=== PATIENT | female | born 1935 | race Caucasian/White ===

== ENCOUNTER 2017-05-30 21:16 | Emergency (ER) | payer BC, OTHER ==
[2017-05-30] MEDS ORDERED: SODIUM CHLORIDE 0.9% 500 ML INFUS.BAG IV ONE (21:27)
[2017-05-30 21:30] VITALS: BP 158/86; PULSE 97; TEMP 99; BMI 21.9
--- NOTE | 2017-05-30 21:35 | PDOC ---
History of Present Illness - General History Source: Patient Exam Limitations: No Limitations - History of Present Illness Initial Comments: 05/30/17 21:35 The patient is an 81 year old female with no pertinent past medical history who presents to the ED with complaints of lethargy, nausea, diarrhea, and cough for the past week. The patient states that on Thursday she went to urgent care for a sore throat and her rapid strep test came back negative. The patient was still prescribed amoxicillin and took two days worth of the prescription until she was called and told the culture came back negative. The patient states her sore throat has subsided but now complains of decreased appetite, nausea, and diarrhea, stating she had 6 watery stools today as well as multiple the past few days. She reports weight loss as well. The patient denies any fevers or chills. She denies any vomiting, melena, or hematochezia. She denies any CP or SOB. She denies any urinary symptoms. <Lanette Masterson - Last Filed: 05/30/17 22:08> <Soy Lew - Last Filed: 05/31/17 07:05> - General Chief Complaint: Respiratory Stated Complaint: COUGH & LETHARGY Time Seen by Provider: 05/30/17 21:24 Past History <Lanette Masterson - Last Filed: 05/30/17 22:08> <Soy Lew - Last Filed: 05/31/17 07:05> - Past Medical History Allergies/Adverse Reactions: Allergies Allergy/AdvReac Type Severity Reaction Status Date / Time No Known Allergies Allergy Verified 05/30/17 21:19 Home Medications: Ambulatory Orders Alendronate Na [Fosamax] 70 mg PO Q7D 05/30/17 Amlodipine Besylate [Norvasc -] 5 mg PO DAILY 05/30/17 Aspirin Coated [Ecotrin -] 81 mg PO DAILY 05/30/17 Atorvastatin Calcium [Lipitor] 10 mg PO DAILY 05/30/17 Juan Miguel/D3/Mag11/Zinc/Foundation Stage Teacher/Baljit/Bor [Caltrate 600+D Plus Tablet] 1 each PO DAILY 01/07 Multivit-Min/Iron/Folic/Lutein [Centrum Silver Women Tablet] 1 each PO DAILY 01/07 Review of Systems - Review of Systems Able to Perform ROS?: Yes Comments:: 05/30/17 21:35 GENERAL/CONSTITUTIONAL: Present: weakness No fever or chills. HEAD, EYES, EARS, NOSE AND THROAT: No change in vision. No ear pain or discharge. No sore throat. GASTROINTESTINAL: Present: nausea, diarrhea No vomiting or constipation. GENITOURINARY: No dysuria, frequency, or change in urination. CARDIOVASCULAR: No chest pain or shortness of breath. RESPIRATORY: Present: cough No wheezing, or hemoptysis. MUSCULOSKELETAL: No joint or muscle swelling or pain. No neck or back pain. SKIN: No rash NEUROLOGIC: No headache, vertigo, loss of consciousness, or change in strength/ sensation. ENDOCRINE: No increased thirst. No abnormal weight change. HEMATOLOGIC/LYMPHATIC: No anemia, easy bleeding, or history of blood clots. ALLERGIC/IMMUNOLOGIC: No hives or skin allergy. All Other Systems: Reviewed and Negative <Lanette Masterson - Last Filed: 05/30/17 22:08> *Physical Exam - Vital Signs Last Vital Signs Temp Pulse Resp BP Pulse Ox 99.0 F 97 H 18 158/86 98 05/30/17 21:18 05/30/17 21:18 05/30/17 21:18 05/30/17 21:18 05/30/17 21:18 - Physical Exam Comments: 05/30/17 21:38 GENERAL: Awake, alert, and fully oriented, in no acute distress HEAD: No signs of trauma EYES: PERRLA, EOMI, sclera anicteric, conjunctiva clear ENT: Auricles normal inspection, hearing grossly normal, nares patent, oropharynx clear without exudates. Moist mucosa NECK: Normal ROM, supple, no lymphadenopathy, JVD, or masses LUNGS: Breath sounds equal, clear to auscultation bilaterally. No wheezes, and no crackles HEART: Regular rate and rhythm, normal S1 and S2, no murmurs, rubs or gallops ABDOMEN: Soft, nontender, normoactive bowel sounds. No guarding, no rebound. No masses EXTREMITIES: Normal range of motion, no edema. No clubbing or cyanosis. No cords, erythema, or tenderness BACK: No midline spinal tenderness in cervical/thoracic/lumbar region NEUROLOGICAL: Normal speech, cranial nerves intact, negative pronator drift, 5/ 5 strength in all 4 extremities, normal sensation to light touch in all 4 extremities, normal cerebellar exam, normal gait, normal reflexes and tone SKIN: Warm, Dry, normal turgor, no rashes or lesions noted. <AlejaLanette - Last Filed: 05/30/17 22:08> Heart Score/ECG Review - ECG Intrepretation Comment:: 05/30/17 22:08 ECG obtained at 21:31 Normal sinus at 84 bpm Anteroseptal infarct, age undetermined <Lanette Masterson - Last Filed: 05/30/17 22:08> ED Treatment Course - LABORATORY CBC & Chemistry Diagram: 05/30/17 21:45 05/30/17 21:45 <clementLanette - Last Filed: 05/30/17 22:08> - LABORATORY CBC & Chemistry Diagram: 05/30/17 21:45 05/30/17 21:45 <Soy Lew - Last Filed: 05/31/17 07:05> Medical Decision Making - Medical Decision Making 05/31/17 07:03 CXR-MARTHA, as read by me, refered to radiology for definitive read mild dehydration no other acute issues identified sympotmatically improved after 1L NS stable for dc now. family understands to return to ED for persistence or worsening <Soy Lew - Last Filed: 05/31/17 07:05> *DC/Admit/Observation/Transfer - Attestations Scribe Attestion: 05/30/17 21:38 Documentation prepared by Lanette Masterson, acting as medical billing manager for Soy Lew MD. <Lanette Masetrson - Last Filed: 05/30/17 22:08> <Soy Lew - Last Filed: 05/31/17 07:05> Diagnosis at time of Disposition: Weakness - Discharge Dispostion Disposition: HOME Condition at time of disposition: Good - Referrals Referrals: Margie Hedrick MD [Primary Care Provider] - Call tomorrow - Patient Instructions Printed Discharge Instructions: DI for Fatigue - Post Discharge Activity
[2017-05-30 21:49] LABS: URINE APPEARANCE Clear; URINE BILIRUBIN 1+ (NEGATIVE); URINE GLUCOSE (UA) Negative (NEGATIVE); URINE KETONE Trace (NEGATIVE); URINE LEUK ESTERASE Negative (NEGATIVE); URINE NITRITE Negative (NEGATIVE); URINE UROBILINOGEN 0.2 (0.2-1.0)
[2017-05-30 21:52] LABS: URINE BLOOD Trace-intact (NEGATIVE); URINE COLOR YELLOW; URINE PROTEIN 2+ (NEGATIVE)
[2017-05-30 21:58] LABS: BASO % 0.5 % (0-2.0); EOS % 0.1 % (0-4.5); HEMATOCRIT 48.1 % (32.4-45.2); HEMOGLOBIN 16.6 GM/dl (10.7-15.3); LYMPH % 48.6 % (8-40); MCH 31.1 pg (25.7-33.7); MCHC 34.5 g/dl (32.0-36.0); MEAN CELL VOLUME 90.1 fl (80-96); MEAN PLT VOLUME 8.1 fl (7.5-11.1); MONO % 12.8 % (3.8-10.2); PLATELET COUNT 187 K/MM3 (134-434); RBC 5.34 M/mm3 (3.60-5.2); RDW 12.8 % (11.6-15.6)
[2017-05-30 22:13] LABS: ALBUMIN 4.1 g/dl (3.5-5.0); ALK PHOS 57 U/L (32-92); ANION GAP 8 (8-16); BLOOD UREA NITROGEN 15 mg/dl (7-18); CALCIUM 8.9 mg/dl (8.4-10.2); CHLORIDE 102 mmol/L (98-107); CO2 24 mmol/L (22-28); CREATININE 0.9 mg/dl (0.6-1.3); GLUCOSE,RANDOM 132 mg/dl (74-106); POTASSIUM 3.7 mmol/L (3.5-5.1); SGOT/AST 49 U/L (10-42); SGPT/ALT 27 U/L (10-40); SODIUM 134 mmol/L (136-145)
[2017-05-30 22:16] LABS: URINE CASTS COARSE GRANULAR 0-1 /hpf
[2017-05-30 22:21] LABS: BILIRUBIN,TOTAL 0.7 mg/dl (0.2-1.0)
--- NOTE | 2017-05-31 20:39 | EKG ---
Test Reason : Blood Pressure : / mmHG Vent. Rate : 084 BPM Atrial Rate : 084 BPM P-R Int : 220 ms QRS Dur : 088 ms QT Int : 356 ms P-R-T Axes : 050 075 066 degrees QTc Int : 420 ms SINUS RHYTHM WITH 1ST DEGREE A-V BLOCK ANTEROSEPTAL INFARCT , AGE UNDETERMINED ABNORMAL ECG NO PREVIOUS ECGS AVAILABLE Confirmed by HUBERT RAMIREZ MD ([id number]) on 05/31/2017 8:39:19 PM Referred By: SMOOTH Confirmed By:HUBERT RAMIREZ MD
== END 2017-05-30 23:16 | disposition home or self-care (01) ==
LOC: FER 21:16
PROC: 3E0337Z Introduction of Electrolytic and Water Balance Substance into Peripheral Vein, Percutaneous Approach (ICD-10-PCS; principal; 2017-05-30)
DX: R53.1 Weakness (principal)
CPT/HCPCS: 36415; 71046-TC-FY; 80053; 81003; 81015; 84443; 84484; 85025; 87086; 93005; 99284-25

== ENCOUNTER 2017-06-03 11:48 | Inpatient (IN) | payer OTHER ==
--- NOTE | 2017-06-03 12:51 | PDOC ---
*Physical Exam - Vital Signs Last Vital Signs Temp Pulse Resp BP Pulse Ox 97.4 F L 106 H 18 140/89 98 06/03/17 11:55 06/03/17 11:55 06/03/17 11:55 06/03/17 11:55 06/03/17 11:55 ED Treatment Course - LABORATORY CBC & Chemistry Diagram: 06/03/17 13:08 06/03/17 13:15 Medical Decision Making - Medical Decision Making 06/03/17 12:48 Ms Almeida is an 81 yo F who presents to the ER due to cough Pt was recently diagnosed with influenza Pt presents today via EMS due to cough initially seen in fast track, sent to the ER Pt seen by Midlevel Provider under my direct supervision Pt interviewed and examined Ancillary studies reviewed I agree with plan as outlined by Midlevel Provider *DC/Admit/Observation/Transfer Diagnosis at time of Disposition: Weakness, Nausea - Discharge Dispostion Disposition: HOME Condition at time of disposition: Improved - Referrals - Patient Instructions - Post Discharge Activity
[2017-06-03 13:27] LABS: BASO % 0.3 % (0-2.0); EOS % 0.2 % (0-4.5); HEMATOCRIT 44.5 % (32.4-45.2); HEMOGLOBIN 15.1 GM/dL (10.7-15.3); LYMPH % 35.3 % (8-40); MCH 31.3 pg (25.7-33.7); MCHC 33.8 g/dl (32.0-36.0); MEAN CELL VOLUME 92.3 fl (80-96); MEAN PLT VOLUME 8.2 fl (7.5-11.1); MONO % 9.7 % (3.8-10.2); NEUT % 54.5 % (42.8-82.8); PLATELET COUNT 156 K/MM3 (134-434); RBC 4.82 M/mm3 (3.60-5.2); RDW 13.4 % (11.6-15.6); WHITE BLOOD COUNT 6.5 K/mm3 (4.0-10.0)
[2017-06-03] MEDS ORDERED: SODIUM CHLORIDE 500 ML IV STA (13:51)
[2017-06-03] MEDS ORDERED: KETOROLAC TROMETHAMINE 30 MG/1 ML VIAL IVPUSH ONE (13:51)
[2017-06-03] MEDS ORDERED: ONDANSETRON 4 MG/2 ML VIAL IVPUSH ONE (13:51)
--- NOTE | 2017-06-03 13:59 | PDOC ---
History of Present Illness - General Chief Complaint: Cold Symptoms Stated Complaint: NAUSEA, COLD Time Seen by Provider: 06/03/17 12:18 History Source: Patient - History of Present Illness Timing/Duration: other Associated Symptoms: reports: cough, nausea/vomiting, weakness. denies: chest pain, diaphoresis, fever/chills, headaches, shortness of breath Past History - Past Medical History Allergies/Adverse Reactions: Allergies Allergy/AdvReac Type Severity Reaction Status Date / Time No Known Allergies Allergy Verified 06/03/17 11:53 Home Medications: Ambulatory Orders Alendronate Na [Fosamax] 70 mg PO Q7D 05/30/17 Amlodipine Besylate [Norvasc -] 5 mg PO DAILY 05/30/17 Aspirin Coated [Ecotrin -] 81 mg PO DAILY 05/30/17 Atorvastatin Calcium [Lipitor] 10 mg PO DAILY 05/30/17 Juan Miguel/D3/Mag11/Zinc/Clinical Lab Technologist/Baljit/Bor [Caltrate 600+D Plus Tablet] 1 each PO DAILY 01/07 Multivit-Min/Iron/Folic/Lutein [Centrum Silver Women Tablet] 1 each PO DAILY 01/07 Cancer: Yes (COLON) COPD: No HTN: Yes Hypercholesterolemia: Yes - Surgical History GI Surgery: Yes (COLON RESECTION 1977) - Immunization History Immunization Up to Date: Yes - Suicide/Smoking/Psychosocial Hx Smoking History: Never smoked Have you smoked in the past 12 months: No If you are a former smoker, when did you quit?: 1987 Information on smoking cessation initiated: No Hx Alcohol Use: No Drug/Substance Use Hx: No Substance Use Type: None Review of Systems - Review of Systems Constitutional: Yes: Weakness. No: Chills, Fever HEENTM: Yes: Throat Pain Respiratory: Yes: Cough. No: Shortness of Breath Cardiac (ROS): No: Chest Pain, Lightheadedness, Palpitations ABD/GI: Yes: Diarrhea, Nausea. No: Vomiting, Abdominal cramping : No: Dysuria *Physical Exam - Vital Signs Last Vital Signs Temp Pulse Resp BP Pulse Ox 97.4 F L 106 H 18 140/89 98 06/03/17 11:55 06/03/17 11:55 06/03/17 11:55 06/03/17 11:55 06/03/17 11:55 - Physical Exam General Appearance: Yes: Appropriately Dressed HEENT: positive: Normal Voice Neck: positive: Supple Respiratory/Chest: positive: Lungs Clear, Normal Breath Sounds. negative: Respiratory Distress Cardiovascular: positive: S1, S2, Tachycardia Gastrointestinal/Abdominal: positive: Soft. negative: Tender Musculoskeletal: negative: CVA Tenderness Integumentary: positive: Dry, Warm Neurologic: positive: Fully Oriented, Alert, Normal Mood/Affect ED Treatment Course - LABORATORY CBC & Chemistry Diagram: 06/03/17 13:08 06/03/17 13:15 - ADDITIONAL ORDERS Additional order review: Laboratory Results 06/03/17 13:08 WBC 6.5 RBC 4.82 Hgb 15.1 Hct 44.5 MCV 92.3 MCH 31.3 MCHC 33.8 RDW 13.4 Plt Count 156 MPV 8.2 Neutrophils % 54.5 Lymphocytes % 35.3 Monocytes % 9.7 Eosinophils % 0.2 Basophils % 0.3 06/03/17 13:08 RBC 4.82 MCV 92.3 MCHC 33.8 RDW 13.4 MPV 8.2 Neutrophils % 54.5 Lymphocytes % 35.3 Monocytes % 9.7 Eosinophils % 0.2 Basophils % 0.3 - RADIOLOGY Radiology Studies Ordered: Category Date Time Status CHEST X-RAY PORTABLE* [RAD] Stat Radiology 06/03/17 12:43 Completed Medical Decision Making - Medical Decision Making 06/03/17 13:53 81-year-old female, history of hypertension, dx w/ influenza ~2 weeks ago, resides at home alone, here with generalized weakness with severe nausea x approximately 10 days. Reports cough and diarrhea that has since resolved. No abdominal pain, shortness of breath, chest pain, fever or chills. Patient was seen in ED 4 days ago for similar symptoms, had negative labs/cxr and discharged home. Of note, ucx was contaminated, rpt sample recommended. Pt reports no dysuria. Prior to last ER visit, pt was seen at an urgent care center w/ sore throat, had negative rapid strep sent home on amoxicillin anyway. Has since stopped meds as was told throat culture was negative per patient. States she returns today because nausea is severe. Has not vomited per patient See exam Weakness w/ nausea Seen for same in ED 4 days ago and neg labs and dc home Appears mildly lethargic w/ HR of 106 Possibly dehydration, r/o cardiac, metabolic or infxn -IVF -zofran -labs -anticipate admission 06/03/17 14:00 Chest x-ray read as COPD. Labs and EKG unremarkable. Pending UA. Case discussed with Dr. Hedrick and patient admitted for hydration *DC/Admit/Observation/Transfer Diagnosis at time of Disposition: Weakness, Nausea - Discharge Dispostion Disposition: HOME Condition at time of disposition: Fair Admit: Yes - Referrals Referrals: Margie Hedrick MD [Primary Care Provider] - - Patient Instructions - Post Discharge Activity
[2017-06-03 14:00] LABS: ALBUMIN 3.5 g/dl (3.4-5.0); ALK PHOS 62 U/L (45-117); ANION GAP 14 (8-16); BILIRUBIN,TOTAL 0.5 mg/dL (0.2-1.0); BLOOD UREA NITROGEN 15 mg/dL (7-18); CALCIUM 8.3 mg/dL (8.5-10.1); CHLORIDE 106 mmol/L (98-107); CO2 20 mmol/L (21-32); CREATININE 0.7 mg/dL (0.55-1.02); GLUCOSE,RANDOM 89 mg/dL (74-106); POTASSIUM 3.7 mmol/L (3.5-5.1); SGOT/AST 37 U/L (15-37); SGPT/ALT 34 U/L (12-78); SODIUM 140 mmol/L (136-145); TOT PROT 7.6 g/dl (6.4-8.2)
[2017-06-03] MEDS ORDERED: ONDANSETRON 4 MG/2 ML VIAL ONE (14:02)
[2017-06-03] MEDS ORDERED: KETOROLAC TROMETHAMINE 30 MG/1 ML VIAL ONE (14:02)
--- NOTE | 2017-06-03 16:02 | EKG ---
Test Reason : Blood Pressure : / mmHG Vent. Rate : 070 BPM Atrial Rate : 070 BPM P-R Int : 252 ms QRS Dur : 078 ms QT Int : 402 ms P-R-T Axes : 064 068 070 degrees QTc Int : 434 ms SINUS RHYTHM WITH 1ST DEGREE A-V BLOCK SEPTAL INFARCT (CITED ON OR BEFORE 30-MAY-2017) ABNORMAL ECG WHEN COMPARED WITH ECG OF 30-MAY-2017 21:31, QUESTIONABLE CHANGE IN INITIAL FORCES OF ANTERIOR LEADS Confirmed by PETRA CARRILLO, LEXIE ([id number]) on 06/03/2017 4:01:44 PM Referred By: Confirmed By:LEXIE LAMBERT MD
[2017-06-03 17:34] VITALS: BMI 21.4
[2017-06-03 18:57] LABS: URINE APPEARANCE CLEAR; URINE BILIRUBIN NEGATIVE (NEGATIVE); URINE BLOOD NEGATIVE (NEGATIVE); URINE COLOR LTYELLOW; URINE GLUCOSE (UA) NEGATIVE (NEGATIVE); URINE KETONE 1+ (NEGATIVE); URINE LEUK ESTERASE TRACE (NEGATIVE); URINE NITRITE NEGATIVE (NEGATIVE); URINE PROTEIN NEGATIVE (NEGATIVE); URINE UROBILINOGEN NEGATIVE mg/dL (0.2-1.0)
[2017-06-03 19:02] LABS: EPI CELLS RARE /HPF (FEW); URINE MUCUS RARE
[2017-06-03 21:34] LABS: N-TERMINAL BNP 182.93 pg/ml (5-450)
[2017-06-03] MEDS ORDERED: ZOLPIDEM TARTRATE 5 MG TABLET PO PRN (22:14)
[2017-06-03] MEDS ORDERED: METOCLOPRAMIDE HCL 10 MG TABLET (FP) PO PRN (22:14)
[2017-06-03] MEDS ORDERED: ONDANSETRON 4 MG/2 ML VIAL IVPUSH PRN (22:15)
[2017-06-03] MEDS ORDERED: amLODIPine BESYLATE 5 MG TABLET (FP) PO SCH (22:15)
[2017-06-03] MEDS ORDERED: ACETAMINOPHEN 325 MG TABLET (FP) PO PRN (22:15)
[2017-06-04 08:53] VITALS: BP 155/78; PULSE 78; TEMP 97.9
[2017-06-04] MEDS ORDERED: ATORVASTATIN CA 10 MG TABLET (FP) PO SCH (10:00)
[2017-06-04] MEDS ORDERED: ASPIRIN COATED 81 MG TABLET.EC PO SCH (10:00)
--- NOTE | 2017-06-04 10:06 | HP ---
DATE OF ADMISSION: 06/03/2017 This is an 81-year-old female known to have hypertension, who came to the emergency room with complaints of nausea and vomiting for 10 days. She was not dehydrated, but she looked weak; so, gave her some IV fluid. She got better. I admitted her under observation for further management. After getting the Zofran and Reglan, she felt good. PHYSICAL EXAMINATION: Vital Signs: This morning, her blood pressure is 130/80, pulse 72, respirations 20, temperature 98. HEENT: Unremarkable. Neck: Supple. No JVD. Lungs: Clear. Heart: S1, S2 normal. No S3 or S4. Abdomen: Soft. Legs: No edema. Neurological: Examination grossly normal. LABORATORY DATA: WBC 6.5, hemoglobin 15. Chemistry: Sodium 140, potassium 3.7, BUN 15, creatinine 0.7. Liver functions are normal. IMPRESSION: 1. Nausea and vomiting, unknown etiology. 2. Hypertension. Patient improved. Plan to send her home. No new medications are given. Nevaeh [id number]
== END 2017-06-04 12:09 | disposition home or self-care (01) | DRG 392 ==
LOC: JER 11:48 → JERFT 11:48 → JERBED 14:42 → J5S 17:22
PROVIDERS: ADMIT Internal Medicine; ATTEND Internal Medicine
DX: R11.2 Nausea with vomiting, unspecified (principal); I10 Essential (primary) hypertension
CPT/HCPCS: 36415; 71045-TC-FY; 80053; 81003; 81015; 83880; 85025; 87086; 93005; 93010; 99282-25